=== PATIENT | female | born 1965 | race Caucasian/White ===

== ENCOUNTER 2021-07-25 16:15 | Outpatient (REF) | payer BC, SELFPAY ==
--- NOTE | 2021-07-25 13:35 | PAPFT_PTH ---
PATIENT: Alyssa Joseph LOC: [facility]#:[id number] AGE/SX: 56/F ROOM: RE07/25/[address]: Iqra Lovell : 1965 BED: DIS: 07/25/2021 SPEC #: [id number] RECD: 07/26/21 12:48 STATUS: SEBLE RESukhwinder #: [id number] KOBY: 07/25/21 13:[address]: Iqra Lovell DEPT: [facility] Cytology RECD BY: Veda Dumont ENTERED: 07/26/21 12:48 SP TYPE: PAPFT OTHR DR: Ivory Page Tissues: 1 - CX/ENDOCX FOR PAP SMEARS Procedures: PAP THIN PREP/[facility] Screening HPV DNA PROBE Comments: [id number] (CHLAMYDIA/GC)
[2021-07-25 22:06] LABS: HCT 38.8 % (36.0-46.0); HGB 12.3 g/dL (11.2-15.7); MCH 28.7 pg (27.0-33.0); MCHC 31.7 % (32.0-36.0); MCV 90.4 fL (80-95); MPV 11.7 fL (8.0-11.0); Platelet Count 251 10^3/uL (130-400); RBC 4.29 10^6/uL (3.93-5.22); RDW 12.1 % (11.7-14.6); RDW-SD 39.8 fL; WBC 6.23 10^3/uL (4.4-10.8)
[2021-07-25 22:28] LABS: ALT 30 U/L (14-59); AST 18 U/L (15-37); Alkaline Phosphatase 79 U/L (46-116); Anion Gap 8.3 mmol/L (3-11); BUN 18 mg/dL (7-18); Bilirubin, Total 0.2 mg/dL (0.2-1.0); CO2 28.7 mmol/L (21.0-32.0); CREATININE 0.8 mg/dL (0.55-1.02); Calcium 8.9 mg/dL (8.5-10.1); Calculated LDL 108 mg/dL (<100); Chloride 104 mmol/L (98-107); Cholesterol 192 mg/dL (<200); Glucose 87 mg/dL (74-106); HDL Cholesterol 69 mg/dL (40-60); Potassium 4.3 mmol/L (3.5-5.1); Sodium 141 mmol/L (136-145); Total Protein 6.5 g/dL (6.4-8.2); Triglyceride 78 mg/dL (<150)
[2021-07-27 10:07] LABS: HIV-1/2 Ag & Ab Screen Negative (Negative)
[2021-07-27 10:22] LABS: Hepatitis C Ab w Rflx HCV PCR Negative (Negative)
[2021-07-28 11:10] LABS: Chlamydia Result Negative (Negative); GC Result Negative (Negative)
== END 2021-07-25 16:16 | disposition home or self-care (01) ==
LOC: NCHCN 16:15
PROVIDERS: PCP Family Medicine; Visit Provider Nurse Practitioner Family
DX: Z00.00 Encounter for general adult medical examination without abnormal findings (principal); Z11.4 Encounter for screening for human immunodeficiency virus [HIV]; Z11.59 Encounter for screening for other viral diseases; Z12.4 Encounter for screening for malignant neoplasm of cervix; Z11.51 Encounter for screening for human papillomavirus (HPV); Z11.3 Encounter for screening for infections with a predominantly sexual mode of transmission
CPT/HCPCS: 80053; 80061; 85027; 86803; 87389; 87491; 87591; 88142; 84443; 87624